=== PATIENT | male | born 1960 | race Caucasian/White ===

== ENCOUNTER 2021-01-10 09:10 | Emergency (ER) | payer MEDICARE, SELFPAY ==
--- NOTE | ~2021-01-10 | US_ITS ---
EXAMINATION: US venous doppler UE DATE: 01/10/2021 10:32 INDICATION: Upper extremity edema with erythema TECHNIQUE: Dias scale images with and without compression and Doppler images of the left upper extrem ity veins were obtained. COMPARISON: None. FINDINGS: The left internal jugular vein, subclavian vein, axillary vein, brachial veins, basilic vein, cephali c vein, radial vein, and ulnar vein are patent. IMPRESSION: 1. Patent left upper extremity veins. No evidence of deep venous thrombosis. Reviewed, dictated and finalized at location A.
--- NOTE | ~2021-01-10 | XR_ITS ---
EXAMINATION: XR forearm LT 2V EXAM DATE: 01/10/2021 10:16 INDICATION: Edema, erythema, swelling/redness, dog scratch x3 days. TECHNIQUE: Left forearm frontal and lateral projections obtained and reviewed. There is no prior bryan dy for comparison. FINDINGS: There are no acute right forearm fractures or dislocations identified. There is no subcuta neous gas. There is soft tissue swelling suspected over the forearm posteriorly. There are no radio paque foreign bodies. No elbow joint effusion. IMPRESSION: Probable posterior soft tissue swelling. No emphysema. Reviewed, dictated and finalized at location B.
[2021-01-10 09:39] VITALS: BP 129/80; PULSE 83; RESP 20; TEMP 36.9; O2SAT 97
--- NOTE | 2021-01-10 10:04 | ED.SKABFB ---
HPI - Skin/Abscess/Foreign Bdy General Chief complaint: Skin/Abscess/Foreign Body <Umm Ni PA-C - Last Filed: 01/10/21 13:22> Stated complaint: cellulitis <JOSÉ LUIS Hamm Last Filed: 01/10/21 13:22> Time Seen by Provider: 01/10/21 09:34 <JOSÉ LUIS Hamm Last Filed: 01/10/21 13:22> Source: patient <JOSÉ LUIS Hamm Last Filed: 01/10/21 13:22> Mode of arrival: ambulatory <JOSÉ LUIS Hamm Last Filed: 01/10/21 13:22> Limitations: no limitations <Umm Ni PA-C - Last Filed: 01/10/21 13:22> History of Present Illness HPI narrative: This is a 60-year-old male that presents to the emergency department for redness and swelling of his left arm present over the last couple of days. Reports his daughter's dog scratched his right arm a couple weeks ago. He took a week of antibiotics, he is unsure what antibiotic he took. Reports the last couple of days he noted redness and swelling of his left arm. Also notes some scabs to the area. There is drainage of clear fluid from the scabs. The arm is itchy. Denies fevers. <Umm Ni PA-C - Last Filed: 01/10/21 13:22> Related Data Home medications: Home Medications Medication Instructions Recorded Confirmed amlodipine 01/10/21 apixaban [Eliquis] mg 01/10/21 aspirin 01/10/21 atorvastatin 01/10/21 bumetanide 01/10/21 hydrochlorothiazide 01/10/21 isosorbide mononitrate mg PO 01/10/21 metoprolol tartrate 01/10/21 telmisartan mg 01/10/21 <JOSÉ LUIS aHmm Last Filed: 01/10/21 13:22> Allergies/Adverse reactions: Allergies Allergy/AdvReac Type Severity Reaction Status Date / Time Sulfa (Sulfonamide Allergy Unknown Unknown Verified 01/10/21 09:50 Antibiotics) <Umm Ni PA-C - Last Filed: 01/10/21 13:22> Review of Systems Review of Systems: Narrative: CONSTITUTIONAL: Denies fever SKIN: Reports rash and itching. MUSCULOSKELETAL: Denies joint pain, or myalgia. NEUROLOGIC: Denies numbness <Umm Ni PA-C - Last Filed: 01/10/21 13:22> All systems reviewed & are unremarkable except as noted in HPI and below <Umm Ni PA-C - Last Filed: 01/10/21 13:22> PMFSH Past Medical History Medical History: Medical History (Updated 01/10/21 @ 13:17 by Umm Ni PA-C) History of hyperlipidemia History of hypertension <Umm Ni PA-C - Last Filed: 01/10/21 13:22> Social History Social History: Social History (Updated 01/10/21 @ 10:07 by Umm Ni PA-C) Smoking status: Current every day smoker Gender identity (if verbalized by the patient): Male <Umm Ni PA-C - Last Filed: 01/10/21 13:22> Exam Narrative: Exam Narrative: GENERAL: Well-appearing, well-nourished, and in no acute distress. HEAD: Normocephalic, atraumatic. EYES: EOMI. EXTREMITIES: Normal range of motion. Mild to moderate edema and erythema of the left forearm. Normal radial pulses. Normal sensation SKIN: Warm, dry, no rash. NEURO: No focal deficits. Alert and oriented x3. PSYCH: Normal mood and affect <Umm Ni PA-C - Last Filed: 01/10/21 13:22> Course Vital Signs Vital signs: Vital Signs Temperature 98.4 F 01/10/21 09:39 Pulse Rate 83 01/10/21 09:39 Respiratory Rate 20 01/10/21 09:39 Blood Pressure 129/80 01/10/21 09:39 Pulse Oximetry 97 01/10/21 09:39 Temperature 98.4 F 01/10/21 09:39 Pulse Rate 65 01/10/21 11:45 Respiratory Rate 18 01/10/21 11:45 Blood Pressure 132/87 01/10/21 11:45 Pulse Oximetry 96 01/10/21 11:45 <Umm Ni PA-C - Last Filed: 01/10/21 13:22> Vital Signs Temperature 98.4 F 01/10/21 09:39 Pulse Rate 83 01/10/21 09:39 Respiratory Rate 20 01/10/21 09:39 Blood Pressure 129/80 01/10/21 09:39 Pulse Oximetry 97 01/10/21 09:39 Temperature 98.4 F 01/10/21 09:39 Pulse Rate 65 01/10/21 11:45 Respiratory Ra
[2021-01-10 10:45] LABS: Basophils Absolute Auto 0.1 K/mm3 (0.0-0.1); Basophils Percent Auto 0.4 % (0.2-1.2); Eosinophils Absolute Auto 0.1 K/mm3 (0-0.3); Eosinophils Percent Auto 1.2 % (0-4.4); Hematocrit 40.1 % (42.0-52.0); Hemoglobin 13.4 g/dL (14.0-18.0); Immature Granulocyte Percent A 0.8 % (0-0.5); Lymphocytes Absolute Auto 1.97 K/mm3 (0.9-3.2); Lymphocytes Percent Auto 16.6 % (18.3-44.2); Mean Corpuscular HGB Conc 33.4 g/dl (32-36); Mean Corpuscular Hemoglobin 30.6 pg (26-34); Mean Corpuscular Volume 91.6 fl (80-100); Mean Platelet Volume 9.9 fl (7.4-10.4); Monocytes Absolute Auto 0.6 K/mm3 (0.1-0.6); Monocytes Percent Auto 5.4 % (2.6-8.5); Neutrophils Percent Auto 75.6 % (45.5-73.1); Platelet Count Result 188 k/mm3 (150-375); Red Blood Count 4.38 M/mm3 (4.6-6.20); Red Cell Distribution Width 13.7 % (11.5-14.5); White Blood Count 11.9 K/mm3 (4.5-10.0)
[2021-01-10 10:56] LABS: Prothrombin Time 13.5 Seconds (11.1-14.7)
[2021-01-10 11:05] LABS: Anion Gap 7 mmol/L (8-16); Blood Urea Nitrogen 13 mg/dL (9-20); CRP 7.2 mg/dL (<1.0); Calcium 8.7 mg/dL (8.4-10.2); Carbon Dioxide 33 mmol/L (22-30); Chloride 89 mmol/L (98-107); Estimated CRCL calculation 83 ml/min; Estimated Glomerular Filt Rate > 60; Glucose 383 mg/dL (65-110); Potassium 3.7 mmol/L (3.4-5.0); Sodium 129 mmol/L (137-145)
[2021-01-10 11:25] LABS: Erythrocyte Sedimentation Rate 35 mm/hr (0-20)
[2021-01-10 11:45] VITALS: BP 132/87; PULSE 65; RESP 18; O2SAT 96
[2021-01-10 12:20] LABS: Hemoglobin A1C 13.1 % (<5.7)
--- NOTE | 2021-01-10 12:46 | PC.NURSE ---
This RN went to ck on pt/update pt and room was empty of both pt and spouse. Pt did not notify anyone he was leaving. order checker packer processer made aware and EDP made aware.
== END 2021-01-10 12:47 | disposition left against medical advice (07) ==
PROVIDERS: Physician Assistant; Emergency Provider General Practice
DX: L03.114 Cellulitis of left upper limb (principal); E11.8 Type 2 diabetes mellitus with unspecified complications; Z91.14 Patient's other noncompliance with medication regimen; E78.5 Hyperlipidemia, unspecified; I10 Essential (primary) hypertension; T38.3X6A Underdosing of insulin and oral hypoglycemic [antidiabetic] drugs, initial encounter; Z91.128 Patient's intentional underdosing of medication regimen for other reason; F17.200 Nicotine dependence, unspecified, uncomplicated; Z79.01 Long term (current) use of anticoagulants
CPT/HCPCS: 36415; 73090; 80048; 83036; 85025; 85610; 85652; 85730; 86140; 93971; 99284

== ENCOUNTER 2021-02-17 11:59 | Emergency (ER) | payer MEDICARE, SELFPAY ==
[2021-02-17 12:10] VITALS: BP 115/75; PULSE 96; RESP 20; TEMP 36.7; O2SAT 98
--- NOTE | 2021-02-17 12:25 | ED.ABDPAIN ---
HPI - Abdominal Pain General Chief Complaint: Abdominal Pain Stated Complaint: Burning in top and bottom of Stomach Time Seen by Provider: 02/17/21 12:20 Source: patient, family () and RN notes reviewed Mode of arrival: ambulatory Limitations: no limitations History of Present Illness HPI narrative: 60-year-old male presents to the [facility] with complaints of epigastric pain for the last 4 to 5 days. Taking Tums and Pepto with no relief. Reports nausea without vomiting. Last bowel movement was diarrhea last night. Has a history of pancreatitis, significant cardiac history. Patient is denying chest pain and shortness of breath. Patient is a diabetic and has not been checking his blood sugar. MD elicited complaint: abdominal pain Related Data Home Medications Medication Instructions Recorded Confirmed amlodipine 02/17/21 apixaban [Eliquis] mg 02/17/21 atorvastatin 02/17/21 hydrochlorothiazide 02/17/21 isosorbide mononitrate mg PO 02/17/21 metoprolol tartrate 02/17/21 nitroglycerin mg 02/17/21 telmisartan mg 02/17/21 Allergies Allergy/AdvReac Type Severity Reaction Status Date / Time Sulfa (Sulfonamide Allergy Unknown Unknown Verified 02/17/21 12:12 Antibiotics) Review of Systems Review of Systems: All systems reviewed & are unremarkable except as noted in HPI and below Constitutional: Constitutional: Reports no additional constitutional complaints, Denies chills and Denies fever(s) Eyes: Eyes: Reports no additional eye complaints ENT: Reports system reviewed and no additional complaints, except as documented Cardiovascular: Cardiovascular: Reports no additional cardiovascular complaints and Denies chest pain Respiratory: Respiratory: Reports no additional respiratory complaints, Denies chest congestion, Denies cough, Denies dyspnea and Denies wheezing Gastrointestinal: Gastrointestinal: Reports as per HPI, Reports abdominal pain, Reports diarrhea, Reports nausea and Reports vomiting Genitourinary: Genitourinary: Reports no additional male genitourinary complaints Musculoskeletal: Musculoskeletal: Reports no additional musculoskeletal complaints Integumentary/Breasts: Skin/Breast: Reports system reviewed and no additional complaints, except as docu Neurologic: Reports system reviewed and no additional complaints, except as documented Endocrine: Endocrine: Reports as per HPI and Reports fatigue Allergic/Immunologic: Allergic/Immunologic: Reports no additional allergic/immunologic complaints [facility] Past Medical History Medical History (Updated 02/17/21 @ 18:54 by Zuleyka Hooks) Cardiac disease Diabetes Hypertension Pancreatitis Family History Family History Sibling Cerebrovascular accident, Onset Age: 42 Patient's brother is , Onset Age: 42 Mother Cerebrovascular accident, Onset Age: 67 Patient's mother is , Onset Age: 67 Father Family history of malignant neoplasm, Onset Age: 73 Patient's father is , Onset Age: 73 Social History Social History Smoking status: Heavy tobacco smoker Alcohol intake: never Exam Const: General: alert and ill appearing chronically Nutritional Appearance: well nourished and obese centrally obese Orientation/consciousness: patient oriented x3 HENMT: Head: normal to inspection Eyes: Pupils: Equal, round and reactive pupils present Neck: Neck: normal visual inspection, no lymphadenopathy and no meningeal signs Chest: Chest palpation & inspection: normal inspection of the chest Resp: Effort & Inspection: normal respiratory effort Auscultation: clear to auscultation bilaterally Cardio: Rate: regular rate Rhythm: regular rhythm GI: GI Palp: Yes Soft to palpation and No Tenderness to palpation present (GI) Auscultation: Hyperactive bowel sounds present Back/Spine/Pel
[2021-02-17] MEDS: ONDANSETRON HCL ODT 4 MG TABLET PO (12:30)
[2021-02-17 12:39] LABS: Glucose Point of Care > 500 mg/dl (65-105)
== END 2021-02-17 12:40 | disposition left against medical advice (07) ==
PROVIDERS: Emergency Provider Nurse Practitioner
DX: R10.13 Epigastric pain (principal); E11.9 Type 2 diabetes mellitus without complications; I10 Essential (primary) hypertension; F17.200 Nicotine dependence, unspecified, uncomplicated
CPT/HCPCS: 82948; 99213; A9270; G0463

== ENCOUNTER 2021-02-17 14:55 | Emergency (ER) | payer MEDICARE, SELFPAY ==
[2021-02-17 15:00] VITALS: BP 137/73; PULSE 98; RESP 20; TEMP 36.3; O2SAT 100
[2021-02-17 15:19] LABS: Basophils Absolute Auto 0.1 K/mm3 (0.0-0.1); Basophils Percent Auto 0.6 % (0.2-1.2); Eosinophils Absolute Auto 0.2 K/mm3 (0-0.3); Hematocrit 45.8 % (42.0-52.0); Hemoglobin 15.7 g/dL (14.0-18.0); Immature Granulocyte Absolute 0.12 K/mm3 (0.00-0.031); Immature Granulocyte Percent A 0.7 % (0-0.5); Mean Corpuscular HGB Conc 34.3 g/dl (32-36); Mean Corpuscular Hemoglobin 31.7 pg (26-34); Mean Corpuscular Volume 92.3 fl (80-100); Mean Platelet Volume 10.3 fl (7.4-10.4); Monocytes Absolute Auto 0.8 K/mm3 (0.1-0.6); Neutrophils Absolute Auto 11.6 K/mm3 (1.3-6.7); Neutrophils Percent Auto 71.7 % (45.5-73.1); Platelet Count Result 265 k/mm3 (150-375); Red Blood Count 4.96 M/mm3 (4.6-6.20); Red Cell Distribution Width 13.7 % (11.5-14.5); White Blood Count 16.2 K/mm3 (4.5-10.0)
[2021-02-17 15:34] LABS: Alanine Aminotransferase 36 U/L (4-50); Albumin Level 4.5 g/dL (3.5-5.1); Alkaline Phosphatase 93 U/L (38-126); Anion Gap 11 mmol/L (8-16); Aspartate Amino Transferase 26 U/L (17-59); Bilirubin,Total 1.3 mg/dL (0.2-1.3); Blood Urea Nitrogen 19 mg/dL (9-20); Calcium 11.1 mg/dL (8.4-10.2); Carbon Dioxide 30 mmol/L (22-30); Chloride 87 mmol/L (98-107); Estimated CRCL calculation 68 ml/min; Estimated Glomerular Filt Rate > 60; Glucose 517 mg/dL (65-110); Lipase 230 U/L (23-300); Potassium 4.3 mmol/L (3.4-5.0); Sodium 128 mmol/L (137-145)
[2021-02-17 15:58] LABS: Add Urine Microscopic? YES; Appearance Urine Clear (Clear); Bilirubin Urine Negative (Negative); Blood Urine Negative (Negative); Color Urine Yellow (Yellow); Glucose Urine UA 3+ mg/dL (Negative); Ketones Urine Negative (Negative); Leukocyte Esterase Ur Negative LEU/UL (Negative); Mucus Urine Rare /lpf; Nitrate Urine Negative (Negative); Protein Urine Negative (Negative); RBC Urine 0-2 /hpf (0-2); Specific Grav Ur 1.017 (1.001-1.035); Squamous Epithelial Cell Urine Rare /hpf (Few); Urobilinogen Urine Negative mg/dL (<2.0); WBC Urine 0-3 /hpf
--- NOTE | 2021-02-17 17:24 | PC.NURSE ---
patient called twice with no answer
== END 2021-02-17 17:24 | disposition left against medical advice (07) ==
PROVIDERS: Emergency Provider Emergency Medicine
DX: R10.9 Unspecified abdominal pain (principal)
CPT/HCPCS: 36415; 80053; 81001; 82948; 83690; 85025; 99199; A9270

== ENCOUNTER 2022-03-29 13:51 | Emergency (ER) | payer MEDICARE, SELFPAY ==
[2022-03-29 14:00] VITALS: BP 156/89; PULSE 102; RESP 16; TEMP 36.1; O2SAT 97
--- NOTE | 2022-03-29 14:11 | ED.EYEPROB ---
HPI - Eye Problem General Chief complaint: Eye Problems Stated complaint: Eye Problem Time Seen by Provider: 03/29/22 14:12 Source: patient Mode of arrival: ambulatory Limitations: no limitations History of Present Illness HPI Narrative: 62-year-old male presented for complaint of right upper eyelid redness, swelling, and yellow drainage. Endorses pain and occasional itching, and states it feels like a grain of sand is in the eye. He endorses has been waking with crusted swollen eye for the last 2 days. He endorses symptoms started after dust flew in his eye as well as his dog hitting the eye with his paw. Denies vision changes, photophobia, headache or dizziness. He has applied warm compresses for pain relief. He does not wear contact lenses. MD chief complaint: eye pain Related Data Home Medications Medication Instructions Recorded Confirmed aspirin 81 mg tablet,delayed 01/10/21 release bumetanide 1 mg tablet 01/10/21 amlodipine 10 mg tablet 02/17/21 atorvastatin 80 mg tablet 02/17/21 hydrochlorothiazide 25 mg tablet 02/17/21 isosorbide mononitrate 30 mg mg PO 02/17/21 tablet,extended release 24 hr metoprolol tartrate 100 mg tablet 02/17/21 nitroglycerin 0.4 mg sublingual mg 02/17/21 tablet telmisartan 80 mg tablet mg 02/17/21 Allergies Allergy/AdvReac Type Severity Reaction Status Date / Time Sulfa (Sulfonamide Allergy Unknown Unknown Verified 03/29/22 14:08 Antibiotics) Review of Systems Review of Systems: CONSTITUTIONAL: Denies body aches, fever, chills EYES:Endorses swelling, redness and pain to right eye ENT: Denies rhinorrhea, congestion, sore throat, or otalgia. CARDIOVASCULAR: Denies chest pain, palpitations RESPIRATORY: Denies cough or dyspnea. SKIN: Denies rash or wounds. MUSCULOSKELETAL: Denies back pain, joint pain, or myalgia. NEUROLOGIC: Denies headache, numbness, tingling, or weakness. All systems reviewed & are unremarkable except as noted in HPI and below PMFSH Past Medical History Medical History Cardiac disease Diabetes History of hyperlipidemia History of hypertension Hypertension Pancreatitis Family History Family History Sibling Cerebrovascular accident, Onset Age: 42 Patient's brother is , Onset Age: 42 Mother Cerebrovascular accident, Onset Age: 67 Patient's mother is , Onset Age: 67 Father Family history of malignant neoplasm, Onset Age: 73 Patient's father is , Onset Age: 73 Social History Social History Smoking status: Current every day smoker Alcohol intake: never Gender identity (if verbalized by the patient): Male Comments At time of signature, I have reviewed and agree with nursing past medical, surgical, social and family history unless otherwise noted. Please see nursing chart for further information. There is no relevant family history pertinent to the presenting complaint Exam Narrative: GENERAL: Well-appearing HEAD: Normocephalic, atraumatic. EYES: Right upper eyelid with mild swelling; moderate amount of thick clear drainage and crusted yellow drainage. No conjunctival injection, no apparent stye. PERRLA. EOMI. Lid eversion showed no foreign body. ENT: Mucous membranes pink and moist. No rhinorrhea. TMs normal bilaterally. Throat normal. Uvula midline. CHEST: Clear to auscultation. SKIN: Warm, dry, no rash. Normal skin turgor. NEURO: Alert and oriented x3 PSYCH: Flat affect. speaks minimally Course Course Emergency Course: Patient is aware of diagnosis, understands and agrees to treatment plan. Anticipatory guidance given. Patient agrees to follow-up as directed and is aware of reasons to seek care at the emergency department. Portions of this record may have been created
== END 2022-03-29 14:44 | disposition home or self-care (01) ==
PROVIDERS: Emergency Provider Nurse Practitioner Family; PCP Internal Medicine
DX: H01.001 Unspecified blepharitis right upper eyelid (principal); E11.9 Type 2 diabetes mellitus without complications; E78.5 Hyperlipidemia, unspecified; I10 Essential (primary) hypertension; F17.200 Nicotine dependence, unspecified, uncomplicated
CPT/HCPCS: 99213; A9270; G0463

== ENCOUNTER 2023-07-31 14:31 | Emergency (ER) | payer MEDICARE, SELFPAY ==
--- NOTE | 2023-07-31 14:43 | ED.GENADULT ---
HPI - General Adult General Chief complaint: Upper Respiratory Infection Stated complaint: fatigue/dizzy/sob Time Seen by Provider: 07/31/23 14:50 Source: patient, RN notes reviewed and old records reviewed Mode of arrival: ambulatory Limitations: no limitations History of Present Illness HPI narrative: 63-year-old male presents to the [facility] with complaints of fatigue, dizziness, shortness of breath. Has a significant heart history, diabetic. Quadruple bypass September of 2022 Uncontrolled diabetic reports that he saw his wet mix operator a week ago, was prescribed a different diuretic. States since he has been still having symptoms of dizziness, fatigue, shortness of breath Onset (ago): week(s) (1) Related Data Home Medications Medication Instructions Recorded Confirmed aspirin 81 mg tablet,delayed 81 mg PO DAILY 01/10/21 03/29/22 release bumetanide 1 mg tablet 1 mg PO DAILY 01/10/21 03/29/22 amlodipine 10 mg tablet 10 mg PO DAILY 02/17/21 03/29/22 atorvastatin 80 mg tablet 80 mg PO DAILY 02/17/21 hydrochlorothiazide 25 mg tablet 25 mg PO DAILY 02/17/21 03/29/22 isosorbide mononitrate 30 mg 30 mg PO DAILY 02/17/21 03/29/22 tablet,extended release 24 hr metoprolol tartrate 100 mg tablet 100 mg PO DAILY 02/17/21 03/29/22 nitroglycerin 0.4 mg sublingual 0.4 mg sublingual PRN PRN Chest 02/17/21 03/29/22 tablet Pain telmisartan 80 mg tablet 80 mg PO DAILY 02/17/21 03/29/22 alprazolam 0.5 mg tablet mg 07/31/23 gabapentin 100 mg capsule mg 07/31/23 insulin lispro protamine-lispro subcut 07/31/23 100 unit/mL (75-25) subcutaneous pen (Humalog Mix 75-25 KwikPen) potassium chloride 20 mEq meq PO 07/31/23 tablet,extended release(part/cryst) rivaroxaban 20 mg tablet (Xarelto) mg 07/31/23 tamsulosin 0.4 mg capsule mg PO 07/31/23 torsemide 20 mg tablet mg 07/31/23 Allergies Allergy/AdvReac Type Severity Reaction Status Date / Time Sulfa (Sulfonamide Allergy Unknown Unknown Verified 03/29/22 14:08 Antibiotics) Review of Systems Review of Systems: All systems reviewed & are unremarkable except as noted in HPI and below Constitutional: Constitutional: Reports as per HPI and Reports fatigue Eyes: Eyes: Reports no additional eye complaints ENT: Reports system reviewed and no additional complaints, except as documented Cardiovascular: Cardiovascular: Reports as per HPI, Denies chest pain, Reports lightheadedness and Reports dyspnea Respiratory: Respiratory: Reports as per HPI, Denies chest congestion, Reports cough and Reports dyspnea Gastrointestinal: Gastrointestinal: Reports no additional gastrointestinal complaints, Denies abdominal pain, Denies nausea and Denies vomiting Musculoskeletal: Musculoskeletal: Reports no additional musculoskeletal complaints Integumentary/Breasts: Skin/Breast: Reports system reviewed and no additional complaints, except as docu Neurologic: Reports as per HPI, Denies vertigo, Reports dizziness and Denies syncope Psychiatric: Psychiatric: Reports no additional psychiatric complaints Allergic/Immunologic: Allergic/Immunologic: Reports no additional allergic/immunologic complaints PMFSH Past Medical History Medical History Cardiac disease Diabetes History of hyperlipidemia History of hypertension Hypertension Pancreatitis Family History Family History Sibling Cerebrovascular accident, Onset Age: 42 Patient's brother is , Onset Age: 42 Mother Cerebrovascular accident, Onset Age: 67 Patient's mother is , Onset Age: 67 Father Family history of malignant neoplasm, Onset Age: 73 Patient's father is , Onset Age: 73 Social History Social History Smoking status: Current every day smoker Alcohol intake: never Gender identity (if v
[2023-07-31 14:50] VITALS: BP 135/93; PULSE 73; RESP 16; TEMP 36.6; O2SAT 96
[2023-07-31 15:03] LABS: Glucose Point of Care 410 mg/dl (65-105)
--- NOTE | 2023-07-31 15:25 | ECG_ITS ---
Measurements Intervals [place] Rate: 83 P: 98 SD: 196 QRS: -54 QRSD: 104 T: 89 QT: 404 QTc: 476 Interpretive Statements SINUS RHYTHM WITH OCCASIONAL SUPRAVENTRICULAR PREMATURE COMPLEXES MARKED LEFT AXIS DEVIATION [QRS AXIS < -30] PATTERN CONSISTENT WITH PULMONARY DISEASE ST DEVIATION AND MODERATE T-WAVE ABNORMALITY, CONSIDER ANTERIOR ISCHEMIA [-0.1+ mV T WAVE IN V3/V4] NO PREVIOUS ECG AVAILABLE FOR COMPARISON Electronically Signed On 08-01-2023 15:00:32 BINDERY MACHINE TENDER by Deric Smith M.D.
--- NOTE | 2023-07-31 15:28 | PC.NURSE ---
Patient taken to room, WINDOWS AND DOORS INSTALLER came in to see patient. Orders received. EKG and POC glucose done. 911 called for transfer.
== END 2023-07-31 15:33 | disposition short-term general hospital (02) ==
PROVIDERS: Emergency Provider Nurse Practitioner; PCP Internal Medicine
DX: R53.1 Weakness (principal); R42 Dizziness and giddiness; R94.31 Abnormal electrocardiogram [ECG] [EKG]; F17.200 Nicotine dependence, unspecified, uncomplicated; I51.9 Heart disease, unspecified; E11.9 Type 2 diabetes mellitus without complications; E78.5 Hyperlipidemia, unspecified; I10 Essential (primary) hypertension; Z79.82 Long term (current) use of aspirin
CPT/HCPCS: 82948; 93005; 99215; G0463